=== PATIENT | male | born 1985 | race Caucasian/White ===

== ENCOUNTER 2024-08-01 12:17 | Observation (INO) | payer OTHER, SELFPAY ==
--- NOTE | ~2024-08-01 | US_ITS ---
CLINICAL HISTORY: ?kidney stone, hydro US renal with Color Doppler Comparison: None Findings: Right kidney normal size and echotexture, 13.4 cm length. Subtle hydronephrosis. No calculus or mass pelvicaliectasis versus parapelvic cyst midpole. Normal color flow. Minimal perinephric fluid. Left kidney was not imaged. Normal distention of the urinary bladder. Bilateral ureteral jets were documented. Impression: 1. Right kidney normal size and position. No nephrolithiasis. Subtle right hydronephrosis. Pelvicaliectasis versus parapelvic cystmidpole right kidney. Minimal perinephric fluid on the right. Left kidney was not imaged 2. Bilateral ureteral jets were demonstrated which excludes complete obstructive uropathy. This document has been electronically signed by: Blayne Dee MD on 08/02/2024 11:11:46
--- NOTE | ~2024-08-01 | CT_ITS ---
ADDENDUM #1 On retrospective imaging of CT abdomen 08/01/2024 and correlating with ultrasound obtained 08/02/2024 there is a small 3 mm obstructive right UPJ stone. Ana Manjula was notified right tiger after addendum was placed at 1:00 PM Electronically signed by: Ismael Shah MD 08/02/2024 01:02 PM [facility] ORIGINAL REPORT EXAMINATION: CT ABDOMEN AND PELVIS WITH CONTRAST CLINICAL INFORMATION: Right lower quadrant tenderness COMPARISON: None available. TECHNIQUE: Multidetector volumetric images were obtained from the superior aspect of the liver through the pubic symphysis following administration 85 mL of Omnipaque 350 intravenous contrast. Sagittal and coronal reformatted images were obtained on the technologist's workstation. Oral contrast: No This CT examination was performed using dose optimization techniques as appropriate, variously including the following: *Automated exposure control *Adjustment of mA and/or kV according to patient size (this includes techniques or standardized protocols for targeted exams where dose is matched to indication/reason for exam; i.e. extremities or head) *Use of iterative reconstruction technique. DLP: 512 mGy FINDINGS: LUNG BASES: The visualized lung bases are unremarkable. LIVER, GALLBLADDER, AND BILIARY TREE: The liver is normal in size, shape, and attenuation. No focal hepatic lesion or biliary ductal dilatation is present. There is a 1.7 cm hypodense lesion right hepatic lobe segment 7, smaller 6 mm lesion segment 2, 7 mm lesion caudate lobe image 20/2, indeterminate. No intrahepatic ductal dilatation seen. No radiopaque gallstones. PANCREAS: Unremarkable. SPLEEN: Unremarkable. ADRENAL GLANDS: There is a left adrenal 1.8 x 1.6 cm lesion 41 Hounsfield units. The right adrenal gland is normal. KIDNEYS AND URETERS: The kidneys are normal in size, shape, and attenuation. No hydronephrosis, hydroureter, or calculi seen. No perinephric stranding. BLADDER: Unremarkable. GASTROINTESTINAL TRACT: There is scattered stool, diverticula and gas seen throughout the colon without distention or diverticulitis. The small bowel loops are normal caliber. There is a focal distention of a loop of distal lesion yielded gas and stool but no mural thickening seen. This best visualized on axial image 64/2 and coronal image 44/5 Appendix is normal. No fat stranding, lymph nodes seen in the abdomen. No free fluid or free air. ABDOMINAL WALL: No significant hernia is appreciated. LYMPH NODES: Normal. VASCULAR: Unremarkable. PELVIC VISCERA: Unremarkable. OSSEOUS STRUCTURES: No aggressive lytic or sclerotic process seen. IMPRESSION: Abnormal distal ileal segment with focal dilation and containing stool and gas. No mural thickening of fat infiltration seen. Question focal inflammatory infectious etiology. Normal appendix. Left adrenal 1.8 cm lesion. Recommend follow-up with adrenal protocol. Nonenhancing hypodense lesions in liver. Indeterminate. Scattered colonic diverticulosis without diverticulitis. Fleischner guidelines were followed. Electronically signed by: Ismael Shah MD 08/01/2024 04:[address]/CT abdomen pelvis w IV con
[2024-08-01 12:30] VITALS: BP 114/84; PULSE 60; RESP 20; TEMP 36.6; O2SAT 99; BMI 27.6
--- NOTE | 2024-08-01 12:30 | ED.ABDPAIN ---
HPI - Abdominal Pain General Chief Complaint: Abdominal Pain Stated Complaint: R abd pain Time Seen by Provider: 08/01/24 15:10 Source: patient, RN notes reviewed and old records reviewed Mode of arrival: ambulatory Limitations: no limitations History of Present Illness ED Provider: Manjula HPI narrative: Patient is a 38-year-old male with history of ADHD presenting to the emergency department with complaint of nausea and vomiting which began yesterday mid day, then this morning he woke with right lower quadrant abdominal pain. 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 States that once he got home the pain increased as well. Denies any diarrhea, fevers. Denies any dysuria, frequency or other urinary symptoms. MD elicited complaint: abdominal pain Onset (ago): hour(s) Pain Consistency: colicky Location: RLQ Severity: severe Quality: stabbing Exacerbating factors: movement Related Data Allergies Allergy/AdvReac Type Severity Reaction Status Date / Time No Known Allergies Allergy Verified 08/01/24 12:35 Review of Systems Review of Systems As per HPI Yes all other systems are reviewed and are negative Constitutional: Reports as per HPI [facility] Social History Social History Advance Directives: No Advance Directives Information Provided: Yes Physical Exam ED Vital Signs: Vital Signs - 24 hr 08/01/24 12:30 08/01/24 16:12 Temperature 98 F 97.6 F Pulse Rate 60 58 Respiratory Rate 20 16 Blood Pressure 114/84 148/77 H Pulse Oximetry 99 94 Oxygen Delivery Method Room Air Room Air BMI result Body Mass Index 27.6 Vital signs have been reviewed and appear to be correct. Blood pressure normal. Heart rate normal. Respiratory rate normal. Temperature normal. Oxygen saturation normal. Const General: cooperative, healthy appearing and no acute distress Orientation/consciousness: oriented to person, oriented to place, oriented to time and patient oriented x3 Limitations: no limitations HENMT Head: Yes normocephalic and Yes atraumatic Ears: external ears normal General nose exam: Normal external nose present Face and sinus: Yes face symmetric Mouth: oropharynx normal and moist mucous membranes Throat: Yes uvula midline Eyes Pupils: Equal, round and reactive pupils present Neck Neck: Yes normal visual inspection and Yes supple Resp Effort & Inspection: normal respiratory effort and able to speak in complete sentences Auscultation: clear to auscultation bilaterally Cardio Rate: regular rate Rhythm: regular rhythm Heart sounds: S1 normal heart sound present and S2 normal heart sound present GI Palpation (GI): Soft to palpation, Tenderness to palpation present (GI) in the RLQ, no guarding and No Rebound tenderness present Auscultation: normoactive bowel sounds General: Yes no CVA tenderness Back/Spine/Pelvis Back: no CVA tenderness Skin General skin exam: elasticity normal and turgor normal Neuro General: oriented to person, oriented to place, oriented to time, patient oriented x3, moves all extremities, no focal motor deficits and CN's II-XI intact bilaterally Cranial nerves: Yes Equal, round and reactive pupils present Cognition (Neuro): normal cognition Extrem General: Yes full ROM, Yes no pedal edema and Yes no calf tenderness Psych Mental Status: mental status grossly normal Affect: normal affect Thought process: Normal thought process present Course Course Course Narrative: This is an RME: Additional HPI, ROS, PE not included below will be deferred to primary provider. RME assessment and note performed by: Aaliyah Polanco PA-C This is a [id number]-male, with a hx of ADHD, who presents to the Er with complaints of right sided abdominal pain since yesterday. Reporting vomiting. No diarrhea or constipation. Had BM today which was soft. No urinary symptoms. Plan: Labs, EKG, urine Medical Decision Making Medical Decision Making MDM Narrative: Patient is a 38-year-old male with history of ADHD presenting to the emergency department with complaint of nausea and vomiting which began yesterday mid day, then this morning he woke with right lower quadrant abdominal pain. On exam patient is awake, A+Ox3, VS WNL, afebrile, normal neurological exam without focal deficits, physical exam findings as above. Given reported symptoms and physical exam findings, initial differential includes but is not limited to appendicitis, renal/ureteral calculi, UTI/pyelonephritis, obstruction. Labs notable for no leukocytosis, no anemia, normal transaminases and Tbili. Denies any pain relief after receiving morphine, dilaudid ordered. CT notable for abnormal distal ileal segment with focal dilation, containing stool and gas, question focal inflammatory infectious etiology. My interpretation is in agreement with the radiologist's interpretation. Case discussed with Dr. Hahn who does not see any areas of obstruction/infection or other obvious cause of patient's pain. Patient again complaining of increasing pain, additional IV dilaudid ordered. Admission accepted by Dr. Light for intractable pain. Differential Diagnosis Differential Diagnoses: The differential diagnosis associated with the presentation includes As per [facility] Admission/Observation Consideration of admission/observation: Escalation of care including admission/observation considered Consult Healthcare Provider Management of the patient was discussed with: Hospitalist and Recreation Superintendent (Dr. Hahn) Lab Data [facility] Lab Attestation statement: I reviewed the patient's lab results. As per [facility] 08/01/24 12:49 08/01/24 12:49 Labs: Lab Results 08/01/24 Range/Units 12:49 WBC 8.0 (4.8-10.8) X10*3/uL RBC 5.12 (4.60-5.80) X10*6/uL Hgb 15.2 (14.0-18.0) g/dl Hct 43.8 (42.0-52.0) % MCV 85.5 (80.0-98.0) fL MCH 29.7 (27.0-33.0) pg MCHC 34.7 (31.0-36.0) g/dl RDW 12.6 (11.0-16.0) % Plt Count 261 (160-400) X10*3/uL MPV 8.8 L (9.4-12.4) fL Immature Gran % (Auto) 0.4 (0.0-0.4) % Neut % (Auto) 77.2 H (45-73) % Lymph % (Auto) 16.5 L (20-40) % [place] % (Auto) 4.6 (2-11) % Eos % (Auto) 1.1 (0-4) % Baso % (Auto) 0.2 (0-2) % Lymph # (Auto) 1.3 (1.2-4.9) X10*3/uL [place] # (Auto) 0.4 (0.1-1.2) X10*3/uL Eos # (Auto) 0.1 (0.0-0.4) X10*3/uL Baso # (Auto) 0.0 (0.0-0.2) X10*3/uL Abs Immat Gran (auto) 0.03 (0.00-0.03) X10*3/uL Absolute Neuts (auto) 6.2 (2.0-8.3) x10*3/uL Absolute Nucleated RBC 0.000 (0.0-0.012) X10*3/uL Nucleated RBC % (auto) 0.0 (0.0-0.2) /100WBC Sodium 140 (135-145) mmol/L Potassium 3.7 (3.3-5.1) mmol/L Chloride 110 H (96-108) mmol/L Carbon Dioxide 23 (22-29) mmol/L Anion Gap 11 L (12-20) BUN 13 (9-16) mg/dL Creatinine 0.88 (0.5-1.4) mg/dL Estim Creat Clear Calc 115.2 Estimated GFR > 60 Random Glucose 125 H (60-115) mg/dL Calcium 8.9 (8.4-10.2) mg/dL Magnesium 2.0 (1.6-2.6) mg/dL Total Bilirubin 0.5 (0.0-1.0) mg/dL Direct Bilirubin 0.1 (0.0-0.5) mg/dL AST 20 (5-37) U/L ALT 13 (0-40) U/L Alkaline Phosphatase 47 (39-117) U/L Troponin I High Sens < 2.7 (<3.5-35.0) ng/L Total Protein 7.5 (6.5-8.0) g/dL Albumin 4.4 (3.5-5.0) g/dL Lipase 19 (8-78) U/L Influenza Type A (PCR) NEGATIVE (Negative) Influenza Type B (PCR) NEGATIVE (Negative) RSV RNA Qual (PCR) NEGATIVE (Negative) SARS-CoV-2 RNA (RT-PCR) NEGATIVE (Negative) Radiology Impression Discussion of test interpretation with radiology: I have reviewed the radiologist's reading. Radiologist Impression: CT/CT abdomen pelvis w IV con IMPRESSION: Abnormal distal ileal segment with focal dilation and containing stool and gas. No mural thickening of fat infiltration seen. Question focal inflammatory infectious etiology. Normal appendix. Left adrenal 1.8 cm lesion. Recommend follow-up with adrenal protocol. Nonenhancing hypodense lesions in liver. Indeterminate. Scattered colonic diverticulosis without diverticulitis. External Record Review External record reviewed: Inpatient record, Office record and Outpatient record Prescription Management I considered prescription management with: Pain Medication Medications Administered Discontinued Medications Generic Name Dose Route Start Last Admin Trade Name Pattie PRN Reason Stop Dose Admin Hydromorphone HCl 1 mg 08/01/24 15:44 08/01/24 15:53 Hydromorphone Hcl 1 Mg/Ml Syringe IVPUSH 08/01/24 15:45 1 mg ONCE ONE Administration Protocol Iohexol 100 ml 08/01/24 16:12 08/01/24 16:12 Iohexol 350 Mg/Ml 100 Ml Infus..Btl IV 08/01/24 16:13 85 ml ONCE ONE Administration Morphine Sulfate 4 mg 08/01/24 15:19 08/01/24 15:28 Morphine Sulfate 4 Mg/Ml Cartridge IVPUSH 08/01/24 15:20 4 mg ONCE ONE Administration Protocol Ondansetron HCl 4 mg 08/01/24 12:33 08/01/24 12:38 Ondansetron Odt 4 Mg Tab.Rapdis TRANSLINGU 08/01/24 12:34 4 mg ONCE ONE Administration Ondansetron HCl 4 mg 08/01/24 15:19 08/01/24 15:24 Ondansetron Hcl 4 Mg/2 Ml Vial IVPUSH 08/01/24 15:20 4 mg ONCE ONE Administration Discharge Plan Discharge Patient Disposition: Admitted As Inpatient Print Language: Mexican
--- NOTE | 2024-08-01 12:34 | ECG_ITS ---
Test Reason : RIGHT ABD PAIN Blood Pressure : */* mmHG Vent. Rate : 56 BPM Atrial Rate : 56 BPM P-R Int : 170 ms QRS Dur : 112 ms QT Int : 420 ms P-R-T Axes : 69 17 39 degrees QTcB Int : 405 ms Sinus bradycardia Incomplete right bundle branch block Borderline ECG No previous ECGs available Referred By: Aaliyah Polanco Electronically Signed By: BAILEY HERCULES MD
[2024-08-01] MEDS: Ondansetron ODT 4 MG TAB.RAPDIS TRANSLINGU (12:38)
[2024-08-01 12:54] LABS: MANUAL DIFF FLAG NO
[2024-08-01 12:57] LABS: Basophils Percent Auto 0.2 % (0-2); Eosinophils Absolute Auto 0.1 X10*3/uL (0.0-0.4); Eosinophils Percent Auto 1.1 % (0-4); Hematocrit 43.8 % (42.0-52.0); Hemoglobin 15.2 g/dl (14.0-18.0); Imm Gran Abs Auto 0.03 X10*3/uL (0.00-0.03); Imm Gran Pct Auto 0.4 % (0.0-0.4); Lymphocytes Absolute Auto 1.3 X10*3/uL (1.2-4.9); Lymphocytes Percent Auto 16.5 % (20-40); Mean Corpuscular HGB Conc 34.7 g/dl (31.0-36.0); Mean Corpuscular Hemoglobin 29.7 pg (27.0-33.0); Mean Corpuscular Volume 85.5 fL (80.0-98.0); Mean Platelet Volume 8.8 fL (9.4-12.4); Monocytes Absolute Auto 0.4 X10*3/uL (0.1-1.2); Monocytes Percent Auto 4.6 % (2-11); Neutrophils Absolute Auto 6.2 x10*3/uL (2.0-8.3); Neutrophils Percent Auto 77.2 % (45-73); Platelet Count 261 X10*3/uL (160-400); Red Blood Count 5.12 X10*6/uL (4.60-5.80); Red Cell Distribution Width 12.6 % (11.0-16.0)
[2024-08-01 13:10] LABS: Alanine Aminotransferase 13 U/L (0-40); Albumin Level 4.4 g/dL (3.5-5.0); Alkaline Phosphatase 47 U/L (39-117); Anion Gap 11 (12-20); Aspartate Amino Transferase 20 U/L (5-37); Bilirubin Direct 0.1 mg/dL (0.0-0.5); Bilirubin Total 0.5 mg/dL (0.0-1.0); Blood Urea Nitrogen 13 mg/dL (9-16); Calcium 8.9 mg/dL (8.4-10.2); Carbon Dioxide 23 mmol/L (22-29); Chloride 110 mmol/L (96-108); Creatinine Clr Calc Pharmacy 115.2; Estimated Glomerular Filt Rate > 60; Glucose Random 125 mg/dL (60-115); Lipase 19 U/L (8-78); Potassium 3.7 mmol/L (3.3-5.1); Sodium 140 mmol/L (135-145); Total Protein 7.5 g/dL (6.5-8.0)
[2024-08-01 13:17] LABS: Troponin-I High Sensitivity < 2.7 ng/L (<3.5-35.0)
[2024-08-01 13:40] LABS: Influenza A PCR NEGATIVE (Negative); Influenza B PCR NEGATIVE (Negative); Resp Syncy Virus RNA Qual PCR NEGATIVE (Negative); SARS COV2 PCR INHOUSE NEGATIVE (Negative)
[2024-08-01] MEDS: ondansetron HCL 4 MG/2 ML VIAL IVPUSH (15:24)
[2024-08-01] MEDS: Morphine Sulfate 4 MG/ML CARTRIDGE IVPUSH (15:28)
[2024-08-01] MEDS: HYDROmorphone HCl 1 MG/ML SYRINGE IVPUSH ×2 (15:53→18:08)
[2024-08-01 16:12] VITALS: BP 148/77; PULSE 58; RESP 16; TEMP 36.4; O2SAT 94
[2024-08-01] MEDS: iohexoL 350 MG/ML 100 ML INFUS..BTL IV (16:12)
[2024-08-01] MEDS: Metoclopramide HCl 10 MG/2 ML VIAL IVPUSH (18:09)
[2024-08-01] MEDS: 0.9 % Sodium Chloride 1,000 ML 999 ML IV (18:09)
--- NOTE | 2024-08-01 18:21 | P.HPHOSP_ITS ---
History of Present Illness Date of Service: 08/01/24 Chief Complaint: rlq pain 38M PMH ADHD, osteosarcoma in remission, presented with right lower quadrant pain. Patient was asymptomatic 2 days prior to presentation. On day prior to presentation had sudden onset right lower quadrant severe 10/10 pain associated with nausea and vomiting. Also with diaphoresis and chills, no measured fever. Denies sick contacts, no diarrhea. Pain was intolerable so came to ED. In ED CT abdomen showed abnormal distal ileal segment with focal dilatation continue stool and gas no mural thickening of fatty infiltration seen question focal inflammatory or infectious in etiology. Appendix was normal. Incidental left adrenal 1.8 cm lesion recommended to follow up with adrenal protocol. Nonenhancing hypodense lesions in liver indeterminate. Review of Systems 2 Review of Systems: Yes all other systems are reviewed and are negative [facility] Medical History (Updated 08/01/24 @ 18:25 by Randell Light MD) ADHD Social History Advance Directives: No Advance Directives Information Provided: Yes Meds Allergies Allergy/AdvReac Type Severity Reaction Status Date / Time No Known Allergies Allergy Verified 08/01/24 12:35 Active Medications: Current Medications Hydromorphone HCl (Hydromorphone Hcl 1 Mg/Ml Syringe) 1 mg IVPUSH Q3H PRN; Protocol PRN Reason: Pain, Severe (Pain Scale 7-10) Sodium Chloride (Ns) 1,000 mls @ 999 mls/hr IV .Q1H1M [facility] Stop: 08/01/24 19:15 Last Admin: 08/01/24 18:09 Dose: 999 mls/hr Lactated Ringer's (Lr) 1,000 mls @ 80 mls/hr IVCONT .[id number] [facility] Physical Exam 2 Vital Signs and Narrative: Vital Signs: Last Vital Signs Temp 97.6 F 08/01/24 16:12 Pulse 58 08/01/24 16:12 Resp 16 08/01/24 16:12 BP 148/77 H 08/01/24 16:12 Pulse Ox 94 08/01/24 16:12 O2 Del Method Room Air 08/01/24 16:12 BMI result Body Mass Index 27.6 General: AO X 3, no acute distress Resp: CTA bilateral, no accessory muscles used CVS: S1,S2,RRR GI: soft, rlq tender, non distended Neuro: motor grossly intact, alert Psych: appropriate affect, appropriate insight Results Labs 08/01/24 12:49 08/01/24 12:49 Labs: Laboratory Results - last 24 hr 08/01/24 12:49 MCV 85.5 MCH 29.7 MCHC 34.7 RDW 12.6 Plt Count 261 MPV 8.8 L Immature Gran % (Auto) 0.4 Neut % (Auto) 77.2 H Lymph % (Auto) 16.5 L [place] % (Auto) 4.6 Eos % (Auto) 1.1 Baso % (Auto) 0.2 Lymph # (Auto) 1.3 [place] # (Auto) 0.4 Eos # (Auto) 0.1 Baso # (Auto) 0.0 Abs Immat Gran (auto) 0.03 Absolute Neuts (auto) 6.2 Absolute Nucleated RBC 0.000 Nucleated RBC % (auto) 0.0 Anion Gap 11 L Estim Creat Clear Calc 115.2 Estimated GFR > 60 Random Glucose 125 H Calcium 8.9 Magnesium 2.0 Total Bilirubin 0.5 Direct Bilirubin 0.1 AST 20 ALT 13 Alkaline Phosphatase 47 Troponin I High Sens < 2.7 Total Protein 7.5 Albumin 4.4 Lipase 19 Influenza Type A (PCR) NEGATIVE Influenza Type B (PCR) NEGATIVE RSV RNA Qual (PCR) NEGATIVE SARS-CoV-2 RNA (RT-PCR) NEGATIVE Imaging Radiologist's Impressions: Impressions Abdomen/Pelvis CT 08/01/24 15:19 IMPRESSION: Abnormal distal ileal segment with focal dilation and containing stool and gas. No mural thickening of fat infiltration seen. Question focal inflammatory infectious etiology. Normal appendix. Left adrenal 1.8 cm lesion. Recommend follow-up with adrenal protocol. Nonenhancing hypodense lesions in liver. Indeterminate. Scattered colonic diverticulosis without diverticulitis. Fleischner guidelines were followed. Electronically signed by: Ismael Shah MD 08/01/2024 04:37 PM EST Assessment and Plan (1) ADHD: Status: Acute Plan 38M PMH ADHD, osteosarcoma in remission, presented with right lower quadrant pain Right lower quadrant pain Infectious versus inflammatory Supportive care with IV fluids and IV opiates Clear liquids for now advance as tolerated Check inflammatory markers Outpatient follow up for incidental CT abnormalities (adrenal adenoma, hypodense lesions in liver) ADHD Continue Adderall Low risk for DVT recommend early ambulation Full code Quality Stroke Does the patient have a stroke diagnosis?: No VTE Prior VTE?: No VTE Risk Level:: Medical - low VTE Device Contraindication: Treatment Not Indicated VTE Drug Contraindication: Treatment Not Indicated
[2024-08-01 18:52] LABS: Appearance Urine Clear; Color Urine Yellow; Glucose Urine UA Negative (Negative); Leukocyte Esterase Urine Negative (Negative); Nitrite Urine Negative (Negative); Specific Gravity - Urine >= 1.030 (1.005-1.025); UMIC TRIGGER UACC YES; Urine Blood Large (3+) (Negative); Urine Ketones 15 mg/dL (Negative); Urine Protein Trace mg/dL (Neg-Trace)
[2024-08-01 18:56] LABS: Bacteria Urine None Seen (None Seen); Hyaline Casts Urine 0-2 /LPF (0-2); RBC Urine >20 /HPF (0-2); Squamous Epithelial Cell Urine 0-2 /HPF (0-2); WBC Urine 0-5 /HPF (0-5)
[2024-08-01] MEDS: Lactated Ringers 1,000 ML 80 ML IVCONT (19:38)
--- NOTE | 2024-08-01 21:04 | PHA.MEDREC ---
Addendum entered by Elder [facility] 08/01/24 21:29: MED REC CHECKED BY [facility] Original Note: Pharmacy Consult ? Medication Reconciliation Pharmacy has completed the medication reconciliation. Spoke with patient and he confirmed his medications. Patient confirmed he is taking the dextroamphetamine-amphetamine 20mg tablet once daily and confirmed he took it this morning. Looking in claims and PDMP, patient has not gotten the dextroamphetamine-amphetamine 20mg tab since 06/21 for 30 days. Patient requests to not take the dextroamphetamine-amphetamine while staying in the hospital.
[2024-08-01 21:14] VITALS: BP 115/58; PULSE 62; RESP 16; TEMP 37; O2SAT 98
[2024-08-02 05:05] VITALS: BP 117/71; PULSE 69; RESP 18; TEMP 36.8; O2SAT 97
[2024-08-02] MEDS: HYDROmorphone HCl 1 MG/ML SYRINGE IVPUSH (05:40)
[2024-08-02 05:41] LABS: Hematocrit 41.8 % (42.0-52.0); Hemoglobin 14.2 g/dl (14.0-18.0); Mean Corpuscular Hemoglobin 29.4 pg (27.0-33.0); Mean Corpuscular Volume 86.5 fL (80.0-98.0); Mean Platelet Volume 8.9 fL (9.4-12.4); Platelet Count 236 X10*3/uL (160-400); Red Blood Count 4.83 X10*6/uL (4.60-5.80); Red Cell Distribution Width 12.8 % (11.0-16.0); White Blood Count 9.8 X10*3/uL (4.8-10.8)
--- NOTE | 2024-08-02 05:42 | PC.NURSE ---
this rn assumed care of pt @ [id number]. pt requested prn dilaudid for pain management for reported 01/23 pain pt medicated according to mar
[2024-08-02 06:19] LABS: Anion Gap 11 (12-20); Blood Urea Nitrogen 12 mg/dL (9-16); Calcium 8.6 mg/dL (8.4-10.2); Carbon Dioxide 24 mmol/L (22-29); Chloride 109 mmol/L (96-108); Creatinine Clr Calc Pharmacy 116.5; Estimated Glomerular Filt Rate > 60; Glucose Random 102 mg/dL (60-115); Potassium 4.2 mmol/L (3.3-5.1); Sodium 140 mmol/L (135-145)
[2024-08-02 06:49] LABS: Erythrocyte Sedimentation Rate 3 MM/HR (0-15)
--- NOTE | 2024-08-02 07:00 | PC.NURSE ---
Report taken from Roxanne Casey RN at this time.
[2024-08-02] MEDS: Lactated Ringers 1,000 ML 80 ML IVCONT ×2 (07:44→21:52)
[2024-08-02] MEDS: 0.9 % Sodium Chloride Flush 3 ML SYRINGE IVFLUSH (07:44)
--- NOTE | 2024-08-02 08:12 | MHC.EDTECH ---
Pt ambulated to the commode, breakfast tray given, pt back in bed. Call alvarez within reach.
[2024-08-02 08:28] VITALS: BP 106/57; PULSE 61; RESP 14; TEMP 36.7; O2SAT 96
--- NOTE | 2024-08-02 10:17 | P.PNIM_ITS ---
Subjective Subjective Date of Service: 08/02/24 Interval History: not interested in advancing diet, still with rlq pain Physical Exam 2 Vital Signs: Vital Signs: Last Vital Signs Temp 98.1 F 08/02/24 08:28 Pulse 61 08/02/24 08:28 Resp 14 08/02/24 08:28 BP 106/57 L 08/02/24 08:28 Pulse Ox 96 08/02/24 08:28 O2 Del Method Room Air 08/02/24 08:28 BMI result Body Mass Index 27.6 General: AO X 3, no acute distress Resp: CTA bilateral, no accessory muscles used CVS: S1,S2,RRR GI: soft, rlq tender, non distended Neuro: motor grossly intact, alert Psych: appropriate affect, appropriate insight Objective Data Active Medications Acetaminophen (Acetaminophen 325 Mg Tablet) 650 mg PO Q6H PRN PRN Reason: Pain, Mild 1-3,fever,headache Calcium Carbonate (Calcium Carbonate 750 Mg Tab.Chew) 750 mg PO Q4H PRN PRN Reason: Heartburn Hydromorphone HCl (Hydromorphone Hcl 1 Mg/Ml Syringe) 1 mg IVPUSH Q3H PRN; Protocol PRN Reason: Pain, Severe (Pain Scale 7-10) Last Admin: 08/02/24 05:40 Dose: 1 mg Documented By: JAYE Lactated Ringer's (Lr) 1,000 mls @ 80 mls/hr IVCONT .[id number] REPLACED BY [facility] Last Admin: 08/02/24 07:44 Dose: 80 mls/hr Documented By: JEFF Magnesium Hydroxide (Milk Of Magnesia 30 Ml Oral.Susp) 30 ml PO DAILY PRN PRN Reason: Constipation Melatonin (Melatonin 3 Mg Tablet) 6 mg PO BEDTIME PRN PRN Reason: Insomnia Sodium Chloride (0.9 % Sodium Chloride Flush 3 Ml Syringe) 3 ml IVFLUSH QSHIFT REPLACED BY [facility] Last Admin: 08/02/24 07:44 Dose: 3 ml Documented By: JEFF Labs 08/02/24 05:30 08/02/24 05:30 Labs: Laboratory Results - last 24 hr 08/01/24 08/01/24 08/02/24 12:49 18:24 05:30 MCV 85.5 86.5 MCH 29.7 29.4 MCHC 34.7 34.0 RDW 12.6 12.8 Plt Count 261 236 MPV 8.8 L 8.9 L Immature Gran % (Auto) 0.4 Neut % (Auto) 77.2 H Lymph % (Auto) 16.5 L [place] % (Auto) 4.6 Eos % (Auto) 1.1 Baso % (Auto) 0.2 Lymph # (Auto) 1.3 [place] # (Auto) 0.4 Eos # (Auto) 0.1 Baso # (Auto) 0.0 Abs Immat Gran (auto) 0.03 Absolute Neuts (auto) 6.2 Absolute Nucleated RBC 0.000 0.000 Nucleated RBC % (auto) 0.0 0.0 ESR 3 Anion Gap 11 L 11 L Estim Creat Clear Calc 115.2 116.5 Estimated GFR > 60 > 60 Random Glucose 125 H 102 Lactic Acid 1.0 Calcium 8.9 8.6 Magnesium 2.0 Total Bilirubin 0.5 Direct Bilirubin 0.1 AST 20 ALT 13 Alkaline Phosphatase 47 Troponin I High Sens < 2.7 C-Reactive Protein 0.20 Total Protein 7.5 Albumin 4.4 Lipase 19 Urine Color Yellow Urine Appearance Clear Urine pH 7.0 Ur Specific [place] >= 1.030 H Urine Protein Trace Urine Glucose (UA) Negative Urine Ketones 15 Urine Blood Large (3+) H Urine Nitrite Negative Ur Leukocyte Esterase Negative Urine RBC >20 H Urine WBC 0-5 Ur Squamous Epith Cells 0-2 Urine Bacteria None Seen Hyaline Casts 0-2 Influenza Type A (PCR) NEGATIVE Influenza Type B (PCR) NEGATIVE RSV RNA Qual (PCR) NEGATIVE SARS-CoV-2 RNA (RT-PCR) NEGATIVE Assessment and Plan (1) Abdominal pain: Status: Acute Plan 38M PMH ADHD, osteosarcoma in remission, presented with right lower quadrant pain Right lower quadrant pain ? infectious gatroenteritis Supportive care with IV fluids and IV opiates Clear liquids for now advance as tolerated negative inflammatory markers - IBD less likely, but if recurrent or persistent may need gi eval for scope ?right kidney stone +microscopic hematuria, ?stone seen on CT, check US, IVF, pain meds Outpatient follow up for incidental CT abnormalities (adrenal lesion, hypodense lesions in liver) ADHD Continue Adderall prn Low risk for DVT recommend early ambulation Full code reason for continued hospitalization:still with pain Quality Stroke Does the patient have a stroke diagnosis?: No VTE Prior VTE?: No VTE Risk Level:: Medical - low VTE Device Contraindication: Treatment Not Indicated VTE Drug Contraindication: Treatment Not Indicated
--- NOTE | 2024-08-02 14:59 | MHC.CM.PN ---
PSYCHIATRY TEACHER MET WITH PT AT BEDSIDE PT LIVES WITH , MOTHER, AND CHILDREN PT USES [facility] FOR PCP PT'S HCP IS , PIERRE ALVARES [phone] PT DOES NOT USE DME PT DOES NOT HAVE SERVICES PT HAS [facility], - FORMS SIGNED
[2024-08-02 15:34] VITALS: BP 124/77; PULSE 68; RESP 18; TEMP 37.1; O2SAT 98
--- NOTE | 2024-08-02 17:14 | PC.NURSE ---
despite doctors orders of clear liquid diet, patient eating solid food brought from home by visitor. Tolerating well
[2024-08-02 19:38] VITALS: BP 122/88; PULSE 98; RESP 18; TEMP 36.4; O2SAT 96
[2024-08-02 23:34] VITALS: BP 127/84; PULSE 78; RESP 18; TEMP 36.3; O2SAT 95
[2024-08-03] MEDS: HYDROmorphone HCl 1 MG/ML SYRINGE IVPUSH (03:27)
[2024-08-03 04:00] VITALS: BP 127/84; PULSE 56; RESP 20; TEMP 36.4; O2SAT 94
[2024-08-03 07:06] VITALS: BP 123/74; PULSE 70; RESP 14; TEMP 36.3; O2SAT 97
--- NOTE | 2024-08-03 08:27 | P.DS_ITS ---
DS: Providers Provider Date of Service: 08/03/24 Date of admission: 08/01/24 18:20 Date of discharge: 08/03/24 Primary care physician: Star Dugan [facility] DS: Diagnosis Discharge Diagnosis (1) Abdominal pain: Status: Acute DS: Summary Hospital Course Hospital Course: from initial hpi: 38M PMH JAELYN, osteosarcoma in remission, presented with right lower quadrant pain. Patient was asymptomatic 2 days prior to presentation. On day prior to presentation had sudden onset right lower quadrant severe 10/10 pain associated with nausea and vomiting. Also with diaphoresis and chills, no measured fever. Denies sick contacts, no diarrhea. Pain was intolerable so came to ED. In ED CT abdomen showed abnormal distal ileal segment with focal dilatation continue stool and gas no mural thickening of fatty infiltration seen question focal inf lammatory or infectious in etiology. Appendix was normal. Incidental left adrenal 1.8 cm lesion recommended to follow up with adrenal protocol. Nonenhancing hypodense lesions in liver indeterminate. hospital course: Patient was admitted for right lower quadrant pain. Initially thought to possibly be infectious gastroenteritis, however after review of CT scan and then renal ultrasound appears to have been small right-sided nephrolithiasis with subtle hydronephrosis, bilateral ureteral jets were demonstrated excluding complete obstructive uropathy. Patient was given IV fluids and pain meds and pain resolved. Patient advised to stay hydrated to avoid recurrence. Also noted to incidentally have indeterminate adrenal lesion and indeterminate hypodense lesions in the liver. Recommend outpatient follow-up for dedicated imagin. Patient is feeling better and will be discharged home. Time Attestation Discharge Coordination Time (in mins): 34 Quality: Safe Use of Opioids Does Pt have an Active Cancer Diagnosis on the Problem List?: No Quality: Stroke Does the patient have a stroke diagnosis?: No Physical Exam Vital Signs: Vital Signs: Last Vital Signs Temp 97.4 F 08/03/24 07:06 Pulse 70 08/03/24 07:06 Resp 14 08/03/24 07:06 BP 123/74 08/03/24 07:06 Pulse Ox 97 08/03/24 07:06 O2 Del Method Room Air 08/03/24 07:06 BMI result Body Mass Index 27.6 General: AO X 3, no acute distress Resp: CTA bilateral, no accessory muscles used CVS: S1,S2,RRR GI: soft, non tender, non distended Neuro: motor grossly intact, alert Psych: appropriate affect, appropriate insight Discharge Plan Discharge Anticipated Discharge Date/Time: 08/03/24 08:24 Patient Disposition: Home, Self-Care Discharge Diagnosis: kidney stone, adrenal lesion, hypodense lesions in liver Referrals: Star Dugan FNP-BC [Primary Care Provider] - 1 Week Nina De Guzman MD [Physician] - 1 Week (adrenal incidentaloma <4cm, 41HU) Discharge Medications: Continued dextroamphetamine-amphetamine 20 mg capsule,extended release 24hr 1 cap PO DAILY PRN (Reason: ATTENTION) Discharge Orders: Discharge Order (Routine); Ordered 08/03/24 Ordered By: Randell Light Diet: Advance to usual diet Activity on Discharge: As tolerated Stand Alone Forms: Patient Portal Discharge page Print Language: Telugu Care Plan Goals: recovery, prevent stones Health Concerns: stones, incidental findings on CT Plan of Treatment: follow up endocrine/pcp for incidentally found indeterminate adrenal lesion and hypodense lesions in liver drink 2L of fluid per day Assessment: see above
--- NOTE | 2024-08-03 08:38 | MHC.CM.PN ---
PT CLEARED TO DC HOME TODAY WITH NO SERVICES VIA PRIVATE TRANSPORT
[2024-08-03 11:07] VITALS: BP 122/86; PULSE 65; RESP 18; TEMP 36.4; O2SAT 98
== END 2024-08-03 11:09 | disposition home or self-care (01) ==
LOC: HO.ED 18:12 → HO.EDOVER 18:24 → HO.S3 08-02 10:16
PROVIDERS: Physician Assistant Medical; Registered Nurse Emergency; Admitting Provider Internal Medicine; Emergency Provider Student in an Organized Health Care Education/Training Program; PCP Nurse Practitioner Family; Visit Provider Internal Medicine
DX: N20.0 Calculus of kidney (principal); D35.02 Benign neoplasm of left adrenal gland; K76.9 Liver disease, unspecified; F90.9 Attention-deficit hyperactivity disorder, unspecified type; R10.31 Right lower quadrant pain; R11.2 Nausea with vomiting, unspecified; Z85.830 Personal history of malignant neoplasm of bone; Z79.899 Other long term (current) drug therapy; Z03.818 Encounter for observation for suspected exposure to other biological agents ruled out
CPT/HCPCS: 0241U; 36415; 74177; 76775; 80048; 80076; 81001; 83605; 83690; 83735; 84484; 85025; 85027; 85652; 86140; 93005; 96361; 96374; 96375; 96376; 99221; 99285; J1171; J2270; J2405; J2765; J7120; Q9967

== ENCOUNTER → 2024-08-01 12:34 | Outpatient (BNV) | payer OTHER, SELFPAY | PROVIDERS: Admitting Provider Internal Medicine; Emergency Provider Student in an Organized Health Care Education/Training Program; PCP Nurse Practitioner Family; Visit Provider Internal Medicine Cardiovascular Disease | DX: R00.1 Bradycardia, unspecified (principal); I45.19 Other right bundle-branch block; R94.31 Abnormal electrocardiogram [ECG] [EKG] | CPT/HCPCS: 93010 ==

== ENCOUNTER → 2024-08-01 15:19 | Outpatient (BNV) | payer OTHER, SELFPAY | PROVIDERS: Emergency Provider Student in an Organized Health Care Education/Training Program; PCP Nurse Practitioner Family; Visit Provider Radiology Diagnostic Radiology | DX: N13.0 Hydronephrosis with ureteropelvic junction obstruction (principal); E27.9 Disorder of adrenal gland, unspecified; K76.89 Other specified diseases of liver; K57.90 Diverticulosis of intestine, part unspecified, without perforation or abscess without bleeding | CPT/HCPCS: 74177 ==

== ENCOUNTER 2024-08-01 18:20 | Outpatient (BNV) | payer OTHER, SELFPAY | END 2024-08-02 10:26 | PROVIDERS: Admitting Provider Internal Medicine; Emergency Provider Student in an Organized Health Care Education/Training Program; PCP Nurse Practitioner Family; Visit Provider Radiology Diagnostic Radiology | DX: N13.39 Other hydronephrosis (principal) | CPT/HCPCS: 76775 ==

== ENCOUNTER → 2024-08-01 18:20 | Outpatient (BNV) | payer OTHER, SELFPAY | PROVIDERS: Admitting Provider Internal Medicine; Emergency Provider Student in an Organized Health Care Education/Training Program; PCP Nurse Practitioner Family; Visit Provider Internal Medicine | DX: R10.31 Right lower quadrant pain (principal) | CPT/HCPCS: 99222; 99232; 99239 ==

== ENCOUNTER → 2024-08-19 09:58 | Outpatient (BNV) | payer OTHER, SELFPAY | PROVIDERS: PCP Nurse Practitioner Family; Visit Provider Radiology Diagnostic Radiology | DX: K76.9 Liver disease, unspecified (principal); D35.02 Benign neoplasm of left adrenal gland | CPT/HCPCS: 74183 ==

== ENCOUNTER 2024-08-19 10:29 | Outpatient (REF) | payer OTHER, SELFPAY ==
--- NOTE | ~2024-08-19 | MR_ITS ---
EXAMINATION: MRI Abdomen without and with contrast HISTORY: K76.9 - Liver disease, unspecified. Liver lesions on CT. COMPARISON: Correlation is made with a CT of the abdomen with contrast dated 08/01/2024. TECHNIQUE: Axial in and out of phase T1-weighted gradient echo, axial diffusion weighted, and axial and coronal haste T2 with fat saturation images were obtained through the abdomen. Subsequently, fat suppressed axial and coronal T1-weighted images were obtained after the intravenous administration of 8.5 mL Gadavist. FINDINGS: There is no significant loss of signal intensity within the liver on opposed phase imaging to suggest steatosis. In segment VII of the liver, there is a 2.0 x 1.3 cm T2 hyperintense lesion which demonstrates peripheral, nodular enhancement with gradual fill in over time. Findings are consistent with a hemangioma. There is a 9 mm cyst in segment II. An additional 6 mm lesion which is minimally T2 hyperintense is noted in segment , which appears to enhance. This lesion is too small to accurately characterize. There is no intrahepatic or extrahepatic biliary ductal dilatation. The hepatic and portal veins are patent. The gallbladder, spleen, pancreas, and right adrenal gland are unremarkable. There is a 2.1 cm left adrenal mass which demonstrates loss of signal intensity on opposed phase imaging, consistent with an adenoma. There are cysts in the kidneys measuring up to 1.2 cm in size. No retroperitoneal lymphadenopathy or ascites is identified in the upper abdomen. The visualized bones demonstrate normal signal intensity. MR/MR abdomen wo/w con IMPRESSION: 1. 2.0 x 1.3 cm hemangioma in segment VII of the liver. 9 mm cyst in segment II. Indeterminate 6 mm enhancing lesion in segment , although statistically this is likely a small hemangioma. 2. 2.1 cm left adrenal adenoma. Electronically signed by: Orlin Michele MD 08/19/2024 01:26 PM [facility]
--- OUTSIDE RECORDS SUMMARY | 2024-08-19 11:18 | XMS_ITS | Clinical Summary ---
Author Organization [facility] Address [address] [place] [address] Care Team Providers Care Child Monitor Name Role Phone Unknown, Doctor Primary Care Provider Unavailabl e Allergies No known active allergies Medications dextroamphetami ne-amphetamine XR (ADDERALL XR) 20 mg capsule SMARTSI Capsule(s) By Mouth Every Morning 11/25/2023 Active dextroamphetami ne-amphetamine (ADDERALL) 5 mg tablet SMARTSI Tablet(s) By Mouth Daily 11/25/2023 Active atorvastatin (LIPITOR) 10 mg tablet SMARTSI Tablet(s) By Mouth Daily Active diclofenac (VOLTAREN) 50 mg EC tablet 1 tablet. 09/15/2023 Active Social History Tobacco Use Types Packs/Day Years Used Date Smoking Tobacco: Every Day Cigarettes Smokeless Tobacco: Current Tobacco Cessation:Ready to Q uit: Not Asked; Counseling Given: Not Answered Sex and Gender Information Value Date Recorded Sex Assigned at Male 11/10/2023 12:09 PM EDT Legal Sex Male 12:08 PM EDT Gender Identity Not on file Sexual Orientation Not on file Plan of Treatment Health Maintenance Due Date Last Done Comments HIV Screening 1985 Hepatitis C Screening 1985 Pneumococcal Vaccine: Pediat jonn (0-5 Years) and At-Risk Patients (6-64 Years) (1 of 2 - PCV) 10/03/1989 Varicella Vaccines (1 of 2 - 13+ 2-dose series) 10/03/1996 Hepatitis B Vaccines (1 of 3 - 19+ 3-dose series) 10/03/2002 DTaP,Tdap,and Td Vaccines (1 - Tdap) 10/03/2005 COVID-19 Vaccine (3 - 2024-25 season) 2024, 11/20/2020 Influenza Vaccine (#1) 2024 05/02/2023, 2016 Alcohol/Substance Use Screening 07/17/2024 Depression Screening and Follow-Up 07/17/2024 Social Drivers of Health Annual Screening 07/17/2024 RSV Vaccine (60+ years old a nd patients) (1 - 1-dose 75+ series) 10/03/2058 Insurance [facility] Care Teams Child Monitor Relationship Specialty Start Date End Date Unknown, Doctor Unknown Unknown, ALIS PCP - General 12/21/23
--- OUTSIDE RECORDS SUMMARY | 2024-08-19 11:18 | XMS_ITS | Referral Summary ---
Author Organization [facility] Address [address] [place] [address] Care Team Providers Care Parts Salvager Name Role Phone Unknown, Doctor Primary Care [...] Orientation Not on file Plan of Treatment Not on file Insurance [facility] Care Teams Parts Salvager Relationship Specialty Start Date End Date Unknown, Doctor Unknown Unknown, ALIS PCP - General 12/21/23
[2024-08-19] MEDS: gadobutroL 10 ML VIAL IVPUSH (11:45)
== END 2024-08-19 10:30 | disposition home or self-care (01) ==
LOC: HO.MRI 10:29
PROVIDERS: PCP Nurse Practitioner Family; Visit Provider Nurse Practitioner Family
DX: K76.9 Liver disease, unspecified (principal)
CPT/HCPCS: 74183; A9585

== ENCOUNTER 2024-11-13 09:46 | Outpatient (AMB) | payer OTHER, SELFPAY ==
[2024-11-13 09:54] VITALS: BP 121/83; PULSE 80; BMI 27.1
--- NOTE | 2024-11-13 09:54 | A.OFFVIS_ITS ---
Vital Signs 11/13/24 09:54 Height 5 ft 11 in Weight 194 lb 0.108 oz BMI 27.1 BP 121/83 Blood Pressure Location Lt brachial Position Sitting Pulse 80 Intake Visit Reasons: Liver Disease Intake Note: Norberto presents in the office as a new patient for Liver Disease. CC: States that he is not having any symptoms. 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 Allergies No Known Allergies Allergy (Verified 08/01/24 12:35) HPI Comments Details: 39 y.o M with PMH of osteosarcoma in his teens, who is here for abnormal liver imaging. Was seen in hospital earlier this year and CT abd/pel at that time showed incidental liver lesions which were followed up with an MRI liver protocol. He otherwise does not have any symptoms including abd pain, N,V, pruritus. Does not drink. No occupational exposures reported. 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 MRI liver protocol 08/2024: 1. 2.0 x 1.3 cm hemangioma in segment VII of the liver. 9 mm cyst in segment II. Indeterminate 6 mm enhancing lesion in segment , although statistically this is likely a small hemangioma. 2. 2.1 cm left adrenal adenoma. Pt has also been referred to endocrinology for adrenal lesion. [facility] Medical History ADHD Social History Patient Tobacco Use Status: Current everyday Tobacco user Cigarettes Per Day: 10 service: No Review of Systems Const All systems reviewed & are unremarkable except as noted in HPI and below Physical Exam Vital Signs: Last Vital Signs Pulse 80 11/13/24 09:54 BP 121/83 11/13/24 09:54 BMI result Body Mass Index 27.1 No apparent distress Nonicteric Abdomen soft, nondistended Alert and oriented x3, normal gait Assessment & Plan Assessment & Plan (1) Lesion of liver: Code(s): K76.9 - Liver disease, unspecified Category: Medical Plan: Reviewed that based on MRI has a benign hemangioma measuring 2 cm and a 9 mm cyst. Both of these are benign findings that does not need a follow up. He does have an indeterminate lesion measuring 6 mm for which we will repeat an MRI liver protocol in 6 months from prior imaging. MRI liver protocol ordered for Aug Follow up after MRI Orders: Orders MR abdomen wo/w con 14 Weeks K76.9 - Liver disease, unspecified Coding Level of Care Code New Pt Level 4 (26438) Diagnoses Lesion of liver K76.9
--- OUTSIDE RECORDS SUMMARY | 2024-11-13 10:36 | XMS_ITS | Clinical Summary ---
Author Organization [facility] Address [address] [place] [address] Care Team Providers Care Typesetting Machine Tender Name Role Phone Unknown, Doctor Primary Care [...] HIV Screening 1985 Hepatitis C Screening 1983 Varicella Vaccines (1 of 2 - 13+ 2-dose series) 10/03/1996 Hepatitis B Vaccines (1 of 3 - 19+ 3-dose series) 10/03/2002 Pneumococcal Vaccine: Pediat jonn (0-5 Years) and At-Risk Patients (6-50 Years) (1 of 2 - PCV) 10/03/2002 DTaP,Tdap,and Td Vaccines (1 - Tdap) 10/03/2005 COVID-19 Vaccine (3 - 2024-25 season) 2024, 11/20/2020 Alcohol/Substance Use Screening 07/17/2024 Depression Screening and Follow-Up 07/17/2024 Social Drivers of Health Annual Screening 07/17/2024 Influenza Vaccine (Season Ended) 2025 05/02/20, 06/20/2017 RSV Vaccine (60+ years old a nd patients) (1 - 1-dose 75+ series) 10/03/2058 Insurance [facility] Care Teams Typesetting Machine Tender Relationship Specialty Start Date End Date Unknown, Doctor Unknown ALIS Carlos PCP - General 12/21/23
== END 2024-11-13 10:26 | disposition home or self-care (01) ==
LOC: HO.HGI 09:47
PROVIDERS: PCP Nurse Practitioner Family; Visit Provider Internal Medicine
DX: K76.9 Liver disease, unspecified (principal)
CPT/HCPCS: 99204

== ENCOUNTER → 2025-02-25 18:04 | Outpatient (BNV) | payer OTHER, SELFPAY | PROVIDERS: Visit Provider Radiology Diagnostic Radiology | DX: D18.03 Hemangioma of intra-abdominal structures (principal) | CPT/HCPCS: 74183 ==

== ENCOUNTER 2025-02-25 18:06 | Outpatient (REF) | payer OTHER, SELFPAY ==
--- NOTE | ~2025-02-25 | MR_ITS ---
EXAMINATION: MR ABDOMEN WITHOUT THEN WITH IV CONTRAST HISTORY: K76.9 - Liver disease, unspecified COMPARISON: Comparison is made with the prior examination dated 08/19/2024. TECHNIQUE: Axial in and out of phase T1-weighted gradient echo, axial diffusion weighted, and axial and coronal HASTE T2 with fat saturation images were obtained through the abdomen. Subsequently, fat suppressed axial and coronal T1-weighted images were obtained after the intravenous administration of 7.5 mL Gadavist. FINDINGS: Liver: There is no loss of signal intensity in the liver on opposed phase imaging to suggest steatosis. Again seen is a 1.7 x 1.2 cm T2 hyperintense lesion in segment VII which demonstrates peripheral nodular enhancement, consistent with meningioma. There is a stable 10 mm cyst in segment II. The hepatic and portal veins are patent. There is no intrahepatic biliary dilatation. Gallbladder/biliary tree: No gallstones are identified. The common bile duct is normal in caliber. No intraluminal filling defects are identified to suggest choledocholithiasis. Spleen: The spleen is top normal in size, but is otherwise unremarkable in appearance. Pancreas: The pancreas is unremarkable. There is no enhancing pancreatic mass. The pancreatic duct is normal in caliber. Adrenals: The right adrenal gland is unremarkable. Again seen is a 2.0 cm left adrenal nodule. Loss of signal intensity on opposed phase imaging is less prominent than on the prior study. Kidneys: There are subcentimeter bilateral renal cysts. There is no hydronephrosis. Lymph nodes: There is no retroperitoneal lymphadenopathy in the upper abdomen. Fluid: There is no ascites in the upper abdomen. Visualized bowel: The visualized small and large bowel loops are unremarkable in appearance. Visualized bones: The visualized bones demonstrate normal marrow signal intensity. MR/MR abdomen wo/w con IMPRESSION: 1. Stable 1.7 x 1.2 cm hepatic hemangioma and 10 mm cyst. 2. Stable 2.0 cm left adrenal adenoma. Electronically signed by: Orlin Michele MD 02/26/2025 07:16 AM EDT
--- OUTSIDE RECORDS SUMMARY | 2025-02-25 18:12 | XMS_ITS | Referral Summary ---
Author Organization [facility] Address [address] [place] [address] Care Team Providers Care Elephant Tamer Name Role Phone Unknown, Doctor Primary Care [...] Plan of Treatment Not on file Insurance [facility] Care Teams Elephant Tamer Relationship Specialty Start Date End Date Unknown, Doctor Unknown Unknown, ALIS PCP - General 12/21/23
--- OUTSIDE RECORDS SUMMARY | 2025-02-25 18:12 | XMS_ITS | Clinical Summary ---
Author Organization [facility] Address [address] [address] Phone Care Team Providers Care Central Supply Assistant Name Role Phone Pcp, Unknown Primary Care Provider Unavailabl e Allergies No known active allergies Medications No known medications Immunizations Immunization Administration Dates Next Due Influenza, Unspecified Formulation 06/05/2009(Diaz: Other) Pneumococcal polysaccharide PPSV23 06/03/2009(Diaz: Other) Social History Tobacco Use Types Packs/Day Years Used Date Smoking Tobacco: Never Assessed Education Answer Date Recorded Are you interested in more education? Not on jack e 03/03/2024 Are you concerned about learning? Not on file 03/03/2024 No 03/03/2024 No 03/03/2024 Digital Access Answer Date Recorded No 03/03/2024 No 03/03/2024 Reliable internet access at home? Not on file 03/03/2024 Device with a working camera? Not on file Intimate Partner Violence Answer Date R ecorded Are you denied basic needs s uch as food, clothing, or medical care? No 03/03/2024 In the past 12 months have y ou been in a relationship with a person who hurts, threatens, or tries to control you? No 03/03/2024 Are you denied basic needs s uch as food, clothing, or medical care? No 03/03/2024 In the past 12 months have y ou been in a relationship with a person who hurts, threatens, or tries to control you? No 03/03/2024 Sex and Gender Information Value Date Recorded Sex Assigned at Not on file Legal Sex Male 7:12 PM EST Gender Identity Not on file Sexual Orientation Not on file Last Filed Vital Signs Vital Sign Reading Time Taken Comments Blood Pressure 131/86 03/03/2024 8:26 AM EDT Pulse 70 03/03/2024 8:26 AM EDT Temperature 37.1 C (98.8 F) 03/03/2024 8:26 AM EDT Respiratory Rate 18 03/03/2024 8:26 AM EDT Oxygen Saturation 99% 03/03/2024 8:26 AM EDT Inhaled Oxygen Concentration - - Weight 70.3 kg (155 lb) 03/03/2024 8:26 AM EDT Height 170.2 cm (5' 7 ) 03/03/2024 8:26 AM EDT Body Mass Index 24.28 03/03/2024 8:26 AM EDT Plan of Treatment Health Maintenance Due Date Last Done Comments Adult Td,Tdap Booster 1983 LIPID PANEL 1983 DEPRESSION SCREENING 1995 SMOKING Hx and SMOKELESS TOB ACCO SCREENING 10/03/1996 HEPATITIS C SCREENING 10/03/2001 HIV ONE-TIME SCREENING (18-6 5 YEARS) 10/03/2001 COVID-19 VACCINE (2023-2 5 season) 2024 HEPATITIS A VACCINES Aged Out No long er eligible based on patient's age to complete this topic HIB VACCINES Aged Out No longer eligi ble based on patient's age to complete this topic MENINGOCOCCAL VACCINES (ACWY) Aged Out No longer eligible based on patient's age to complete this topic MENINGOCOCCAL VACCINES (B) Aged Out N o longer eligible based on patient's age to complete this topic PNEUMOCOCCAL VACCINES (0-49 years) Aged Out No longer eligible based on patient's age to complete this topic Medical Devices Not on file Insurance [facility] POS [facility] POS [facility] POS [facility] [place] [place] [id number] [facility] POS [facility] POS Care Teams Central Supply Assistant Relationship Specialty Start Date End Date Pcp, Unknown PCP - General 03/03/24 Additional Source Comments The information contained in this document represents components of the legal health record. It is not the complete legal health record.[facility]
== END 2025-02-25 18:07 | disposition home or self-care (01) ==
LOC: HO.MRI 18:06
PROVIDERS: Visit Provider Internal Medicine
DX: K76.9 Liver disease, unspecified (principal); Z86.018 Personal history of other benign neoplasm
CPT/HCPCS: 74183; A9585

== ENCOUNTER 2025-03-19 08:54 | Outpatient (AMB) | payer OTHER, SELFPAY ==
--- NOTE | 2025-03-19 08:55 | A.OFFVIS_ITS ---
Vital Signs 03/19/25 09:04 Height 5 ft 11 in Weight 205 lb 0.478 oz BMI 28.6 BP 118/93 H Blood Pressure Location Lt brachial Position Sitting Pulse 96 Intake Visit Reasons: 5 mo f/u Intake Note: Norberto presents in the office as a 5 month follow up. CC: States that he has no concerns today! Planting Material Unloader Required: No Allergies No Known Allergies Allergy (Verified 03/19/25 09:04) HPI Comments Details: 39 y.o M with PMH of osteosarcoma in his teens, who is here for abnormal liver imaging. Was seen in hospital earlier this year and CT abd/pel at that time showed incidental liver lesions which were followed up with an MRI liver protocol. He otherwise does not have any symptoms including abd pain, N,V, pruritus. Does not drink. No occupational exposures reported. 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 MRI liver protocol 08/2024: 1. 2.0 x 1.3 cm hemangioma in segment VII of the liver. 9 mm cyst in segment II. Indeterminate 6 mm enhancing lesion in segment , although statistically this is likely a small hemangioma. 2. 2.1 cm left adrenal adenoma. Pt has also been referred to endocrinology for adrenal lesion. MRI liver protocol 02/25/25: Liver: There is no loss of signal intensity in the liver on opposed phase imaging to suggest steatosis. Again seen is a 1.7 x 1.2 cm T2 hyperintense lesion in segment VII which demonstrates peripheral nodular enhancement, consistent with meningioma. There is a stable 10 mm cyst in segment II. The hepatic and portal veins are patent. There is no intrahepatic biliary dilatation. Gallbladder/biliary tree: No gallstones are identified. The common bile duct is normal in caliber. No intraluminal filling defects are identified to suggest choledocholithiasis. Spleen: The spleen is top normal in size, but is otherwise unremarkable in appearance. Pancreas: The pancreas is unremarkable. There is no enhancing pancreatic mass. The pancreatic duct is normal in caliber. Adrenals: The right adrenal gland is unremarkable. Again seen is a 2.0 cm left adrenal nodule. Loss of signal intensity on opposed phase imaging is less prominent than on the prior study. Kidneys: There are subcentimeter bilateral renal cysts. There is no hydronephrosis. 03/19/25: Here for follow up after MRI. No acute GI issues. ENdocrincology referral was not processed as they need a referral generated by PCP. Pt aware to review this with his PCP Padmini Meraz CNP. In terms of liver lesions, he was reassured that both are benign and show stability in size. PFSH Medical History ADHD Social History Patient Tobacco Use Status: Current everyday Tobacco user Cigarettes Per Day: 10 service: No Review of Systems Const All systems reviewed & are unremarkable except as noted in HPI and below Physical Exam Exam Exam: No apparent distress Nonicteric Abdomen soft, nondistended Alert and oriented x3, normal gait Vital Signs: Last Vital Signs Pulse 96 03/19/25 09:04 BP 118/93 H 03/19/25 09:04 BMI result Body Mass Index 28.6 Assessment & Plan Assessment & Plan (1) Lesion of liver: Code(s): K76.9 - Liver disease, unspecified Category: Medical (2) Lesion of adrenal gland: Code(s): E27.9 - Disorder of adrenal gland, unspecified Category: Medical Plan Reviewed that based on MRI has a benign hemangioma measuring 2 cm and a 9 mm cyst. Both of these are benign findings. An US abd in 1 year can be ordered through PCP office to ensure no interval in change and if cont to be stable no further surveillance needed. He was also advised to follow up with his PCP for endocrine referral for LEFT adrenal nodule. Patient Instructions: * Both the liver lesions are benign. One of them is a benign tumor of blood vessels (hemangioma) and the other is a cyst. Both of these are stable in size compared to imaging in Jul 2024. We recommend an ultrasound Feb 2026 to ensure these are not growing. * You also have a small lesion on the LEFT adrenal gland. We recommend seeing an river pilot for further evaluation. Coding Level of Care Code Est Pt Level 4 (93725) Diagnoses Lesion of liver K76.9 Lesion of adrenal gland E27.9
[2025-03-19 09:04] VITALS: BP 118/93; PULSE 96; BMI 28.6
--- OUTSIDE RECORDS SUMMARY | 2025-03-19 09:29 | XMS_ITS | Clinical Summary ---
Author Organization [facility] Address [address] [address] Phone Care Team Providers Care Wireless Field Technician Name Role Phone Pcp, Unknown Primary Care [...] 10/03/2001 COVID-19 VACCINE (2023-2 5 season) 2024 INFLUENZA VACCINE (#1) 2025 HEPATITIS A VACCINES Aged Out No long [...] topic Medical Devices Not on file Insurance [facility] POS [facility] POS [facility] POS [facility] POS [facility] POS Care Teams Wireless Field Technician Relationship Specialty Start Date End Date Pcp, Unknown PCP - General 03/03/24 Additional Source Comments The information contained in this document represents components of the legal health record. It is not the complete legal health record.[facility]
--- OUTSIDE RECORDS SUMMARY | 2025-03-19 09:29 | XMS_ITS | Clinical Summary ---
Author Organization [facility] Address [address] [place] [address] Care Team Providers Care Ciso Name Role Phone Unknown, Doctor Primary Care [...] DTaP,Tdap,and Td Vaccines (1 - Tdap) 10/03/2005 Alcohol/Substance Use Screening 07/17/2024 Depression Screening and Follow-Up 07/17/2024 Social Drivers of Health Annual Screening 07/17/2024 COVID-19 Vaccine ( season) 2025, 11/20/2020 Influenza Vaccine (#1) 2025 05/02/2023, 2016 RSV Vaccine (60+ years old a nd patients) (1 - 1-dose 75+ series) 10/03/2058 Insurance [facility] Care Teams Ciso Relationship Specialty Start Date End Date Unknown, Doctor Unknown ALIS Carlos PCP - General 12/21/23
== END 2025-03-19 09:53 | disposition home or self-care (01) ==
LOC: HO.HGI 08:55
PROVIDERS: PCP Nurse Practitioner Family; Visit Provider Internal Medicine
DX: K76.9 Liver disease, unspecified (principal); E27.9 Disorder of adrenal gland, unspecified
CPT/HCPCS: 99214